=== PATIENT | female | born 1965 | race Hispanic/Latino ===

== ENCOUNTER 2020-10-16 17:56 | Emergency (ER) | payer SELFPAY | END 2020-10-16 19:45 | disposition left against medical advice (07) | LOC: NAV ERS 17:56 | DX: G89.18 Other acute postprocedural pain (principal); M79.661 Pain in right lower leg; I10 Essential (primary) hypertension; E11.9 Type 2 diabetes mellitus without complications; Z79.82 Long term (current) use of aspirin; Z79.899 Other long term (current) drug therapy; Z96.651 Presence of right artificial knee joint | CPT/HCPCS: 99283 ==